=== PATIENT | female | born 1995 | race Caucasian/White ===

== ENCOUNTER 2021-09-02 17:20 | Observation (INO) | payer OTHER ==
[2021-09-02 17:32] VITALS: BMI 23.8
[2021-09-02] MEDS ORDERED: diazePAM 5 MG TABLET PO ONE (19:12)
[2021-09-02] MEDS ORDERED: MAGNESIUM SULF 50% (8.12 MEQ/2 ML-1 GM VIAL) IVPB ONE (19:31)
[2021-09-02] MEDS ORDERED: diazePAM 5 MG TABLET ONE (19:37)
[2021-09-02 19:56] LABS: ALBUMIN 3.7 g/dl (3.4-5.0); BLOOD UREA NITROGEN 7.6 mg/dL (7-18); CALCIUM 8.6 mg/dL (8.5-10.1); MAGNESIUM 2.7 mg/dL (1.8-2.4)
[2021-09-02 20:00] LABS: CREATININE 0.9 mg/dL (0.55-1.3)
[2021-09-02 20:01] LABS: BILIRUBIN,TOTAL 0.4 mg/dL (0.2-1); TOT PROT 6.8 g/dl (6.4-8.2)
[2021-09-02 21:43] LABS: BASO % 1.7 % (0-2.0); EOS % 1.6 % (0-4.5); HEMATOCRIT 41.9 % (32.4-45.2); HEMOGLOBIN 14.4 GM/dL (10.7-15.3); LYMPH % 43.8 % (8-40); MCH 30.6 pg (25.7-33.7); MCHC 34.3 g/dl (32.0-36.0); MEAN CELL VOLUME 89.2 fl (80-96); MONO % 10.1 % (3.8-10.2); NEUT % 42.8 % (42.8-82.8); PLATELET COUNT 185 10^3/uL (134-434); RDW 13.3 % (11.6-15.6); WHITE BLOOD COUNT 3.8 K/mm3 (4.0-10.0)
[2021-09-02 22:15] LABS: ALBUMIN 3.8 g/dl (3.4-5.0); BLOOD UREA NITROGEN 6.7 mg/dL (7-18); CALCIUM 8.6 mg/dL (8.5-10.1)
[2021-09-02 22:18] LABS: CREATININE 0.8 mg/dL (0.55-1.3)
[2021-09-02 22:19] LABS: BILIRUBIN,TOTAL 0.4 mg/dL (0.2-1); TOT PROT 6.7 g/dl (6.4-8.2)
[2021-09-02] MEDS ORDERED: ACETAMINOPHEN 1000 MG/100 ML BAG IVPB ONE (23:32)
[2021-09-02] MEDS ORDERED: SODIUM CHLORIDE 0.9% 500 ML INFUS.BAG IV ONE (23:32)
[2021-09-02] MEDS ORDERED: ACETAMINOPHEN INJECTION 100 ML IVPB ONE (23:35)
[2021-09-03] MEDS ORDERED: DEXTROSE 50%-WATER - 25 GM/50 ML VIAL IVPUSH ONE (00:06)
[2021-09-03] MEDS ORDERED: TRIMETHOBENZAMIDE HCL 200MG/2ML INJ IM ONE (00:25)
[2021-09-03] MEDS ORDERED: DEXTROSE 50%-WATER 25 GM/50 ML DISP.SYRIN ONE (00:34)
[2021-09-03] MEDS ORDERED: DEXTROSE 5%-NORMAL SALINE 1,000 ML IV SCH (02:00)
[2021-09-03] MEDS ORDERED: THIAMINE HCL 200 MG/2 ML VIAL IVPB ONE (02:06)
[2021-09-03] MEDS ORDERED: LORazepam 1 MG TABLET PO PRN (02:08)
[2021-09-03] MEDS ORDERED: THIAMINE HCL 200 MG/2 ML VIAL ONE (02:13)
[2021-09-03] MEDS ORDERED: LORazepam 1 MG TABLET ONE ×2 (06:11→16:28)
[2021-09-03] MEDS: LORazepam 1 MG TABLET PO SCH ×3 (06:16→16:27)
[2021-09-03 07:40] LABS: HEMATOCRIT 41.7 % (32.4-45.2); HEMOGLOBIN 14.4 GM/dL (10.7-15.3); MCH 30.8 pg (25.7-33.7); MCHC 34.4 g/dl (32.0-36.0); MEAN CELL VOLUME 89.6 fl (80-96); PLATELET COUNT 185 10^3/uL (134-434); RBC 4.66 M/mm3 (3.60-5.2); RDW 13.5 % (11.6-15.6); WHITE BLOOD COUNT 5.6 K/mm3 (4.0-10.0)
[2021-09-03 07:42] LABS: ALBUMIN 3.6 g/dl (3.4-5.0); BLOOD UREA NITROGEN 7.6 mg/dL (7-18); CALCIUM 8.3 mg/dL (8.5-10.1); MAGNESIUM 2.4 mg/dL (1.8-2.4)
[2021-09-03 07:45] LABS: CREATININE 0.7 mg/dL (0.55-1.3); PHOSPHOROUS 3.3 mg/dL (2.5-4.9)
[2021-09-03 07:47] LABS: BILIRUBIN,TOTAL 0.9 mg/dL (0.2-1); TOT PROT 6.6 g/dl (6.4-8.2)
[2021-09-03] MEDS ORDERED: DIVALPROEX SODIUM 500 MG TABLET E.C. ONE (09:36)
[2021-09-03] MEDS ORDERED: FOLIC ACID 1 MG TABLET (FP) ONE (09:37)
[2021-09-03] MEDS ORDERED: NICOTINE 21 MG/24 HOURS TOPICAL PATCH ONE (09:57)
[2021-09-03] MEDS ORDERED: DIVALPROEX SODIUM 500 MG TABLET E.C. PO SCH (10:00)
[2021-09-03] MEDS ORDERED: FOLIC ACID 1 MG TABLET (FP) PO SCH (10:00)
[2021-09-03] MEDS ORDERED: NICOTINE 21 MG/24 HOURS TOPICAL PATCH TD SCH (10:00)
[2021-09-03] MEDS ORDERED: ENOXAPARIN NA (PORCINE) 40 MG/0.4 ML DISP.SYRIN SQ SCH (10:00)
[2021-09-03] MEDS ORDERED: clonazePAM 0.5 MG TABLET PO PRN (10:00)
[2021-09-03 13:46] VITALS: BP 137/76; PULSE 65; TEMP 97.6
[2021-09-03 14:17] LABS: PH,URINE 6.5 (5.0-8.0); URINE APPEARANCE CLEAR; URINE BILIRUBIN NEGATIVE (NEGATIVE); URINE COLOR YELLOW; URINE GLUCOSE (UA) 1+ (NEGATIVE); URINE KETONE 1+ (NEGATIVE); URINE LEUK ESTERASE NEGATIVE (NEGATIVE); URINE NITRITE NEGATIVE (NEGATIVE); URINE PROTEIN NEGATIVE (NEGATIVE)
[2021-09-03 14:20] LABS: HCG,QUALITATIVE URINE Negative
[2021-09-04] MEDS ORDERED: LORazepam 1 MG TABLET PO SCH (05:00)
[2021-09-04] MEDS ORDERED: THIAMINE HCL 200 MG/2 ML VIAL IVPB SCH (10:00)
[2021-09-05] MEDS ORDERED: LORazepam 0.5 MG TABLET PO PRN
[2021-09-05] MEDS ORDERED: LORazepam 0.5 MG TABLET PO SCH (05:00)
[2021-09-06] MEDS ORDERED: LORazepam 0.5 MG TABLET PO ONE (05:00)
== END 2021-09-03 17:30 | disposition left against medical advice (07) ==
LOC: JER 17:20 → JERBED 21:03 → INTOOBSV 21:03
PROVIDERS: ADMIT Internal Medicine; ATTEND Internal Medicine
PROC: 3E033NZ Introduction of Analgesics, Hypnotics, Sedatives into Peripheral Vein, Percutaneous Approach (ICD-10-PCS; principal; 2021-09-02)
DX: F17.210 Nicotine dependence, cigarettes, uncomplicated (principal); F31.9 Bipolar disorder, unspecified; F41.9 Anxiety disorder, unspecified; R25.1 Tremor, unspecified; R29.2 Abnormal reflex; R00.0 Tachycardia, unspecified; I45.81 Long QT syndrome; E16.2 Hypoglycemia, unspecified; Z29.8 Encounter for other specified prophylactic measures; F10.10 Alcohol abuse, uncomplicated
CPT/HCPCS: 0241U-QW; 36415; 80053; 80307; 81003; 82962; 83735; 84100; 84443; 84703; 85025; 85027; 87086; 93005; 93010; 99285-25; G0378

== ENCOUNTER 2022-04-26 08:28 | Emergency (ER) | payer OTHER ==
[2022-04-26 08:35] VITALS: BP 129/84; PULSE 82; RESP 19; TEMP 98.2; BMI 25.6
[2022-04-26 09:10] LABS: EOS % 1.1 % (0-4.5); HEMATOCRIT 46.1 % (32.4-45.2); HEMOGLOBIN 15.8 GM/dL (10.7-15.3); MCH 30.4 pg (25.7-33.7); MCHC 34.3 g/dl (32.0-36.0); MEAN CELL VOLUME 88.7 fl (80-96); MEAN PLT VOLUME 9.4 fl (7.5-11.1); MONO % 7.5 % (3.8-10.2); NEUT % 60.4 % (42.8-82.8); PLATELET COUNT 301 10^3/uL (134-434); RDW 13.2 % (11.6-15.6)
[2022-04-26 09:26] LABS: ALBUMIN 4.4 g/dl (3.4-5.0); BLOOD UREA NITROGEN 7.6 mg/dL (7-18); CALCIUM 9.2 mg/dL (8.5-10.1)
[2022-04-26 09:30] LABS: CREATININE 0.8 mg/dL (0.55-1.3)
[2022-04-26 09:31] LABS: BILIRUBIN,TOTAL 0.9 mg/dL (0.2-1)
[2022-04-26 09:32] LABS: TOT PROT 7.7 g/dl (6.4-8.2)
[2022-04-26 13:14] LABS: HIV INTERPRETATION NEGATIVE (NEGATIVE)
== END 2022-04-26 10:15 | disposition home or self-care (01) ==
LOC: JERFT 08:28
DX: Z20.6 Contact with and (suspected) exposure to human immunodeficiency virus [HIV] (principal)
CPT/HCPCS: 36415; 80053; 84702; 85025; 87389; 99283-25

== ENCOUNTER 2022-08-17 09:36 | Emergency (ER) | payer OTHER ==
[2022-08-17 09:58] VITALS: BP 104/70; PULSE 86; RESP 16; TEMP 98.6; BMI 25.6
== END 2022-08-17 10:54 | disposition home or self-care (01) ==
LOC: JERFT 09:36
DX: L70.0 Acne vulgaris (principal)
CPT/HCPCS: 99283-25

== ENCOUNTER 2023-01-12 22:51 | Emergency (ER) | payer OTHER ==
[2023-01-12 22:57] VITALS: BP 106/75; PULSE 91; RESP 20; TEMP 98.4; BMI 25.6
[2023-01-12] MEDS ORDERED: VANCOMYCIN ORAL SOLUTION 125 MG/2.5 ML PO ONE (23:50)
== END 2023-01-13 01:22 | disposition home or self-care (01) ==
LOC: JERFT 22:51
DX: R19.7 Diarrhea, unspecified (principal); R10.84 Generalized abdominal pain
CPT/HCPCS: 87045; 87046; 87324; 87449; 99283-25

== ENCOUNTER 2023-03-02 13:12 | Emergency (ER) | payer BC, OTHER ==
[2023-03-02 13:40] VITALS: BP 110/88; PULSE 79; RESP 18; TEMP 98.6; BMI 27.4
== END 2023-03-02 14:50 | disposition home or self-care (01) ==
LOC: JERFT 13:12
PROC: 0HQFXZZ Repair Right Hand Skin, External Approach (ICD-10-PCS; principal; 2023-03-02)
DX: S61.411A Laceration without foreign body of right hand, initial encounter (principal); W26.0XXA Contact with knife, initial encounter
CPT/HCPCS: 99282-25

== ENCOUNTER 2024-08-29 12:42 | Emergency (ER) | payer BC ==
[2024-08-29 12:52] VITALS: BP 106/77; PULSE 108; RESP 20; TEMP 97.8; BMI 23.8
[2024-08-29 14:42] LABS: METHADONE, UR NEGATIVE (NEGATIVE); URINE AMPHETAMINES NEGATIVE (NEGATIVE); URINE BARBITURATES NEGATIVE (NEGATIVE); URINE BENZODIAZEPINES NEGATIVE (NEGATIVE)
[2024-08-29 14:44] LABS: PHENCYCLIDINE,URINE NEGATIVE (NEGATIVE)
[2024-08-29 14:46] LABS: OPIATES, URI NEGATIVE (NEGATIVE)
[2024-08-29 14:54] LABS: COCAINE, UR NEGATIVE (NEGATIVE)
== END 2024-08-29 13:16 | disposition home or self-care (01) ==
LOC: JERFT 12:42
DX: Z02.83 Encounter for blood-alcohol and blood-drug test (principal)
CPT/HCPCS: 80307; 99283-25